=== PATIENT | male | born 1955 | race Caucasian/White ===

== ENCOUNTER 2025-04-19 07:57 | Outpatient (CLI) | payer MEDICARE, BC ==
[~2025-04-19 07:57] MED LIST: ASPI-10 PO; ATOR-411 PO; BENA10TA74 PO; CLOP-32 PO; FOCUS FACTOR; MULT-1249 PO; SILD25TA PO
--- NOTE | 2025-04-19 10:31 | VASCULAR REPORT ---
Carotid Duplex Clinical History: Postop right carotid endarterectomy. Comparison: VASC VL CAROTID on DOS: 11/02/24 Technique: Duplex Doppler evaluation of the extracranial carotid and vertebral arteries including color Doppler and spectral/pulsed waveform analysis was performed. Findings: RIGHT SIDE: The peak systolic velocities are 109 cm/s in the CCA, 138 cm/s in the ICA. The ICA/CCA ratio is 1.35 . The external carotid artery is patent with peak systolic velocity of 199 cm/s proximally. The subclavian artery is patent with peak systolic velocity of 135 cm/s. There is appropriate antegrade flow in the right vertebral artery. LEFT SIDE: The peak systolic velocities are 128 cm/s in the CCA, 114 cm/s in the ICA. The ICA/CCA ratio is 1.12 . The external carotid artery is patent with peak systolic velocity of 359 cm/s proximally. The subclavian artery is patent with peak systolic velocity of 163 cm/s. There is appropriate antegrade flow in the left vertebral artery. IMPRESSION: Mild heterogeneous plaque visualized at the carotid artery bifurcation extending into the proximal in ternal carotid arteries bilaterally. Less than 50% stenosis visualized in bilateral internal carotid artery system. Less than 50% stenosis visualized in the right external carotid artery. The left external carotid ar star demonstrates greater than 50% stenosis. Less than 50% stenosis visualized in bilateral common carotid arteries. Antegrade flow in bilateral vertebral arteries. Nonspecific mild increased elevated velocity in the l eft vertebral artery possibly indicating a proximal obstruction. Multiphasic waveforms in the proximal subclavian arteries, bilaterally. Reference: Radiology 2003; 229:340-346 Normal ICA PSV is <125 cm/sec and no plaque or intimal thickening is visible sonographically addition al criteria include ICA/CCA PSV ratio <2.0 and ICA EDV <40 cm/sec <50% ICA stenosis ICA PSV is <125 cm/sec and plaque or intimal thickening is visible sonographically additional criteria include ICA/CCA PSV ratio <2.0 and ICA EDV <40 cm/sec 50-69% ICA stenosis ICA PSV is 125-230 cm/sec and plaque is visible sonographically additional criter ia include ICA/CCA PSV ratio of 2.0-4.0 and ICA EDV of 40-100 cm/sec 70% ICA stenosis but less than near occlusion ICA PSV is >230 cm/sec and visible plaque and luminal narrowing are seen at marcos-scale and color Doppler ultrasound (the higher the Doppler parameters lie above the threshold of 230 cm/sec, the greater the likelihood of severe disease) additional criteria include ICA/CCA PSV ratio >4 and ICA EDV >100 cm/sec
== END 2025-04-19 23:59 | disposition home or self-care (01) ==
LOC: VAS 07:57
PROVIDERS: ATTEND Surgery
DX: I65.23 Occlusion and stenosis of bilateral carotid arteries (principal)
CPT/HCPCS: 93880